=== PATIENT | male | born 2000 | race Caucasian/White ===

== ENCOUNTER 2020-05-30 16:41 | Emergency (ER) | payer MEDICAID, OTHER, SELFPAY ==
[2020-05-30] MEDS ORDERED: Diphtheria,Pertussis(Acell),Tetanus Vaccine 0.5 ML SDV IM ONE (17:08)
[2020-05-30] MEDS ORDERED: Bacitracin Oint 1 GM U/D Packet TOP ONE (17:08)
--- NOTE | 2020-05-30 18:07 | EDM.PDOC ---
ED HPI GENERAL MEDICAL PROBLEM - General Chief Complaint: Laceration Stated Complaint: CUT MIDDLE FINGER Time Seen by Provider: 05/30/20 17:40 Source of Information: Reports: Patient History Limitations: Reports: No Limitations - History of Present Illness INITIAL COMMENTS - FREE TEXT/NARRATIVE: 19-year-old male that cut the tip of his middle finger on the right hand with a bladder trimmer. He is otherwise healthy, he is due for a tetanus booster. No other injury. Onset: Sudden Duration: Hour(s): (1 hour ago) Location: Reports: Upper Extremity, Right Associated Symptoms: Reports: No Other Symptoms Left Finger-Middle Pain Score (Numeric/FACES): 4 - Related Data Allergies Allergy/AdvReac Type Severity Reaction Status Date / Time No Known Allergies Allergy Verified 05/30/20 17:18 Home Meds: Home Meds Fexofenadine [Manda] 1 tab PO DAILY 05/30/20 [History] Fluticasone Propionate [Flonase Allergy Relief] 2 spray TOM DAILY 05/30/20 [History] Multivitamin [Multi-Vitamin Daily] 1 tab PO DAILY 05/30/20 [History] Past Medical History - Past Surgical History HEENT Surgical History: Reports: Detached Retina, Retinal Other HEENT Surgeries/Procedures: jul 2018 detached retina Social & Family History - Tobacco Use Smoking Status *Q: Never Smoker - Caffeine Use Caffeine Use: Reports: None - Recreational Drug Use Recreational Drug Use: No ED ROS GENERAL - Review of Systems Review Of Systems: See Below Constitutional: Denies: Fever, Chills Respiratory: Denies: Shortness of Breath Cardiovascular: Denies: Chest Pain GI/Abdominal: Reports: Nausea (Somewhat nauseated from feeling anxious about the injury) Neurological: Denies: Paresthesia ED EXAM, SKIN/RASH Exam: See Below Exam Limited By: No Limitations General Appearance: Alert, No Apparent Distress, Anxious Respiratory/Chest: No Respiratory Distress Cardiovascular: Regular Rate, Rhythm, Bradycardia Extremities: Other (Exam is otherwise limited to the middle finger of the right hand. The patient has a 2 cm laceration across the tip of the finger medial to lateral, into the pulp. Does not involve the nail or nailbed.) Neurological: Alert, Oriented Psychiatric: Anxious Skin: Warm, Dry Course - Vital Signs Last Recorded V/S: Last Vital Signs Temp 97.1 F 05/30/20 17:31 Pulse 51 L 05/30/20 17:31 Resp 16 05/30/20 17:31 BP 100/50 L 05/30/20 17:31 Pulse Ox 94 L 05/30/20 17:31 - Orders/Labs/Meds Orders: Active Orders 24 hr Category Date Time Status Vaccines to be Administered [RC] PER UNIT ROUTINE Care 05/30/20 17:08 Active Meds: Medications Discontinued Medications Generic Name Dose Route Start Last Admin Trade Name Howie PRN Reason Stop Dose Admin Bacitracin 1 dose 05/30/20 17:08 05/30/20 17:24 Bacitracin Oint 1 Gm TOP 05/30/20 17:09 1 dose ONETIME ONE Administration Diphtheria/Tetanus/Acell Pertussis 0.5 ml 05/30/20 17:08 05/30/20 17:22 Adacel IM 05/30/20 17:09 0.5 ml .ONCE ONE Administration Lidocaine HCl 5 ml 05/30/20 17:08 05/30/20 17:22 Xylocaine-Mpf 1% INJECT 05/30/20 17:09 5 ml ONETIME ONE Administration - Re-Assessments/Exams Free Text/Narrative Re-Assessment/Exam: 05/30/20 17:59 The area was anesthetized with 1% lidocaine and cleansed thoroughly with saline. Four 4-0 Ethilon sutures were used to close the laceration. Topical bacitra eveline and Band-Aids were applied, the patient was also given a small aluminum foam splint to wear for protection. Sutures can be removed in 8 days. Departure - Departure Time of Disposition: 18:15 Disposition: Home, Self-Care 01 Clinical Impression: Laceration of right middle finger Qualifiers: Encounter type: initial encounter Damage to nail status: without damage Foreign body presence: without foreign body Qualified Code(s): S61.212A - Laceration without foreign body of right middle finger without damage to nail, initial encounter - Discharge Information Instructions: Laceration Care, Adult Referrals: Natasha Pollard MD [Primary Care Provider] - Forms: ED Department Discharge Care Plan Goals: Keep wound covered and clean while healing. Protect with splint as needed, and increase activity as tolerated. Sutures can be removed in 8 days, recheck xiomy ner if concerns of infection or not healing satisfactorily. Sepsis Event Note (ED) - Evaluation Sepsis Screening Result: No Definite Risk - My Orders Last 24 Hours: My Active Orders 05/30/20 17:08 Vaccines to be Administered [RC] PER UNIT ROUTINE - Assessment/Plan Last 24 Hours: My Active Orders 05/30/20 17:08 Vaccines to be Administered [RC] PER UNIT ROUTINE
== END 2020-05-30 18:15 | disposition home or self-care (01) ==
LOC: JP.ED 16:41
DX: S61.212A Laceration without foreign body of right middle finger without damage to nail, initial encounter (principal); Z23 Encounter for immunization; W27.8XXA Contact with other nonpowered hand tool, initial encounter
CPT/HCPCS: 12001; 90471; 90715; 99282; J2001; 99283